=== PATIENT | female | born 1955 | race Caucasian/White ===

== ENCOUNTER 2025-06-15 16:41 | Outpatient (CLI) | payer OTHER, SELFPAY ==
--- NOTE | 2025-06-15 17:30 | CRLHL7_ITS ---
For Patients: As a result of the Century Cures Act, medical imaging exams and procedure reports are released immediately into your electronic medical record. You may view this report before your referring provider. If you have questions, please contact your health care provider. INDICATION: FALL 6 DAYS AGO. WORSENING SUPERIOR CERVICAL PAIN. R/O FRACTURE COMPARISON: None TECHNIQUE: CT of the cervical spine without contrast FINDINGS: No acute fracture or malalignment. Straightening of the normal cervical lordosis. Slight degenerative anterolisthesis of C2 on C3 and degenerative retrolisthesis of C6 on C7. Cervical spondylitic changes spanning C3-C4 through C6-C7 to include severe intervertebral disc height loss with associated degenerative endplate changes, disc osteophyte complexes, mild uncovertebral and facet arthropathy, and varying degrees of spinal canal and moderate to severe neural foraminal narrowing bilaterally. No acute high-grade spinal canal or neuroforaminal stenosis. No suspicious osseous lesions. The soft tissues are without acute abnormality. Small calcification in the right thyroid gland without appreciable nodule. IMPRESSION: 1. No acute fracture or trauma-related malalignment. 2. Severe multilevel cervical spondylosis. Please note that all CT scans at this facility use dose modulation, iterative reconstruction, and/or weight-based dosing when appropriate to reduce radiation dose to as low as reasonably achievable. Dictated by Ty Priest MD @ 06/15/2025 5:45:03 PM (Electronically Signed)
== END 2025-06-15 16:42 | disposition home or self-care (01) ==
LOC: CT 16:42
PROVIDERS: Visit Provider Physician Assistant
DX: M48.02 Spinal stenosis, cervical region (principal); M50.320 Other cervical disc degeneration, mid-cervical region, unspecified level; M51.34 Other intervertebral disc degeneration, thoracic region
CPT/HCPCS: 72125